=== PATIENT | female | born 1955 | race Caucasian/White ===

== ENCOUNTER → 2016-10-21 | Outpatient (CLI) | payer OTHER | LOC: FIMAGING 12:44 | DX: Z12.31 Encounter for screening mammogram for malignant neoplasm of breast (principal) | CPT/HCPCS: G0202 ==

== ENCOUNTER 2017-11-06 15:13 | Emergency (ER) | payer OTHER ==
--- NOTE | 2017-11-06 15:52 | CPEKG ---
Heart Rate: 82 RR Interval: 732 P-R Interval: 156 QRSD Interval: 88 QT Interval: 392 QTC Interval: 458 P [place]: 62 QRS [place]: -35 T Wave [place]: 51 EKG Severity - OTHERWISE NORMAL ECG - EKG Impression: SINUS RHYTHM EKG Impression: LEFT AXIS DEVIATION Electronically Signed By: Maria Isabel Saldivar 06-Nov-2017 22:36:04
[2017-11-06] MEDS ORDERED: NS 500 ML IV ONE (16:10)
--- NOTE | 2017-11-06 16:13 | EDPHY ---
H & P Time Seen by Provider: 11/06/17 15:27 HPI/ROS: CHIEF COMPLAINT: "Abdominal tightness" HISTORY OF PRESENT ILLNESS: Patient is a 62-year-old female who presents emergency department with anterior abdominal tightness. Patient states she was working outside earlier today. She subsequently became hot so she came inside. At 3:00 p.m. she developed a tightness across her upper abdomen. This did not radiate to her chest, arm or jaw. She had mild shortness of breath associated with this symptom. No cough. No nausea, vomiting or diaphoresis. No leg pain or swelling. No recent travel. Her pain has resolved. She feels back to normal. The patient took a full-strength aspirin at the onset of her symptoms. REVIEW OF SYSTEMS: My complete review of systems is negative except as mentioned in the HPI. Past Medical/Surgical History: Includes hypertension, anemia Past surgical history: Noncontributory Social history: Patient denies smoking Smoking Status: Never smoked Physical Exam: Vitals noted GENERAL: Well-appearing, in no acute distress, alert. HEENT: Eyes normal to inspection, normal pharynx, no signs of dehydration. NECK: No thyromegaly, no lymphadenopathy, supple. RESPIRATORY: Clear to auscultation bilaterally, no rales, rhonchi or wheezing. CVS: Regular rate and rhythm, no rubs, murmurs, or gallops. ABDOMEN: Soft, nontender, nondistended, no organomegaly. BACK: Normal to inspection, no CVA tenderness. SKIN: Normal color, no rash, warm, dry. No pallor. EXTREMITIES: No pedal edema, no calf tenderness, no Homans sign or cords, no joint swelling. NEURO/PSYCH: Alert and oriented x3, normal mood and affect, normal motor sensory exam. No obvious cranial nerve deficit. Constitutional: Initial Vital Signs Temperature (C) 37 C 11/06/17 15:17 Heart Rate 90 11/06/17 15:17 Respiratory Rate 16 11/06/17 15:17 Blood Pressure 144/81 H 11/06/17 15:17 O2 Sat (%) 97 11/06/17 15:17 O2 Delivery Mode Room Air Allergies/Adverse Reactions: No Known Allergies Allergy (Unverified 11/06/17 15:17) Home Medications: Medication Instructions Recorded Lisinopril 05/05/18 Omeprazole 11/06/17 Medical Decision Making - Diagnostics Imaging Results: Imaging Impressions Chest X-Ray 11/06/17 16:07 Impression: 1. Clear lungs. No pneumonia or effusion. 2. Large hiatal hernia. ED Course/Re-evaluation: In the emergency department patient appears well. I discussed the plan with the patient and answered all her questions. IV was placed. Laboratory studies , EKG and chest x-ray were obtained. Patient was not given aspirin because she took 1 prior to arrival. EKG shows normal sinus rhythm, normal rate, left axis, normal intervals. There are no ST or T-wave abnormalities. Patient's CBC and chemistry unremarkable. Troponin was negative. Repeat EKG 18 13: EKG shows normal sinus rhythm, normal rate, left axis deviation, normal intervals. There are no ST or T-wave abnormalities. Her repeat troponin was negative. 1755: I rechecked the patient and she felt well. She had no complaints. No chest pain or shortness of breath. She will follow up with primary care physician on Wednesday. She was given warnings prior to leaving. She will return with worsening symptoms. Differential Diagnosis: My differential includes but is not limited to ACS, acute NH, dissection, aneurysm, electrolyte abnormality, sugar abnormality, dehydration, pulmonary embolus, pericarditis, pancreatitis, cholecystitis, hiatal hernia - Data Points Laboratory Results: Laboratory Results 11/06/17 15:35 11/06/17 15:35 11/06/17 11/06/17 11/06/17 18:10 15:35 15:35 WBC 7.52 10^3/uL 10^3/uL (3.80-9.50) RBC 4.48 10^6/uL 10^6/uL (4.18-5.33) Hgb 9.1 g/dL L g/dL (12.6-16.3) Hct 30.1 % L % (38.0-47.0) MCV 67.2 fL L fL (81.5-99.8) MCH 20.3 pg L pg (27.9-34.1) MCHC 30.2 g/dL L g/dL (32.4-36.7) RDW 18.2 % H % (11.5-15.2) Plt Count 377 10^3/uL 10^3/uL (150-400) MPV 10.5 fL fL (8.7-11.7) Neut % (Auto) 67.4 % % (39.3-74.2) Lymph % (Auto) 24.9 % % (15.0-45.0) [place] % (Auto) 4.7 % % (4.5-13.0) Eos % (Auto) 2.0 % % (0.6-7.6) Baso % (Auto) 0.7 % % (0.3-1.7) Nucleat RBC Rel Count 0.0 % % (0.0-0.2) Absolute Neuts (auto) 5.08 10^3/uL 10^3/uL (1.70-6.50) Absolute Lymphs (auto) 1.87 10^3/uL 10^3/uL (1.00-3.00) Absolute Monos (auto) 0.35 10^3/uL 10^3/uL (0.30-0.80) Absolute Eos (auto) 0.15 10^3/uL 10^3/uL (0.03-0.40) Absolute Basos (auto) 0.05 10^3/uL 10^3/uL (0.02-0.10) Absolute Nucleated RBC 0.00 10^3/uL 10^3/uL (0-0.01) Immature Gran % 0.3 % % (0.0-1.1) Immature Gran # 0.02 10^3/uL 10^3/uL (0.00-0.10) Platelet Estimate ADEQUATE (ADEQ) Polychromasia 1+ H Hypochromasia 1+ H Microcytic Cells 2+ H Elliptocytes 1+ H Smear Review By Pending Sodium 140 mEq/L mEq/L (135-145) Potassium 4.0 mEq/L mEq/L (3.5-5.2) Chloride 107 mEq/L mEq/L (97-110) Carbon Dioxide 20 mEq/l L mEq/l (22-31) Anion Gap 13 mEq/L mEq/L (8-16) BUN 16 mg/dL mg/dL (7-23) Creatinine 1.1 mg/dL H mg/dL (0.6-1.0) Estimated GFR 51 Glucose 116 mg/dL H mg/dL (70-100) Calcium 8.8 mg/dL mg/dL (8.5-10.4) Total Bilirubin 0.7 mg/dL mg/dL (0.1-1.4) Conjugated Bilirubin 0.5 mg/dL mg/dL (0.0-0.5) Unconjugated Bilirubin 0.2 mg/dL mg/dL (0.0-1.1) AST 24 IU/L IU/L (14-46) ALT 33 IU/L IU/L (9-52) Alkaline Phosphatase 86 IU/L IU/L (38-126) Troponin I < 0.012 ng/mL ng/mL < 0.012 ng/mL ng/mL (0.000-0.034) (0.000-0.034) Total Protein 6.6 g/dL g/dL (6.3-8.2) Albumin 3.9 g/dL g/dL (3.5-5.0) Lipase 115 IU/L IU/L (23-300) Medications Given: Discontinued Medications Sodium Chloride (Ns) 500 mls @ 1,000 mls/hr IV EDNOW ONE PRN Reason: Protocol Stop: 11/06/17 16:39 Last Admin: 11/06/17 18:59 Dose: 500 mls Departure - Departure Disposition: Home, Routine, Self-Care Clinical Impression: Chest pain Qualifiers: Chest pain type: other chest pain Qualified Code(s): R07.89 - Other chest pain Condition: Good Instructions: Chest Pain (ED), Acute Abdominal Pain (ED) Additional Instructions: Return with increasing pain, weakness, shortness of breath, fever or any other concerns. Referrals: Rosa Elena Eubanks [Primary Care Provider] - 1-2 days without fail
[2017-11-06 16:30] LABS: PLATELET COUNT 377 10^3/uL (150-400)
--- NOTE | 2017-11-06 18:16 | CPEKG ---
Heart Rate: 73 RR Interval: 822 P-R Interval: 152 QRSD Interval: 86 QT Interval: 416 QTC Interval: 459 P [place]: 145 QRS [place]: -28 T Wave [place]: 1 EKG Severity - BORDERLINE ECG - EKG Impression: SINUS OR ECTOPIC ATRIAL RHYTHM EKG Impression: BORDERLINE LEFT AXIS DEVIATION EKG Impression: BORDERLINE T WAVE ABNORMALITIES Electronically Signed By: Maria Isabel Saldivra 06-Nov-2017 22:36:04
[2017-11-06 20:09] VITALS: BP 133/86
== END 2017-11-06 20:09 | disposition home or self-care (01) ==
DX: R07.89 Other chest pain (principal); E86.9 Volume depletion, unspecified; I10 Essential (primary) hypertension

== ENCOUNTER → 2017-11-10 | Outpatient (CLI) | payer OTHER | LOC: FIMAGING 13:27 | PROVIDERS: ATTEND Obstetrics & Gynecology Gynecology | DX: Z12.31 Encounter for screening mammogram for malignant neoplasm of breast (principal) ==

== ENCOUNTER → 2017-12-07 | Outpatient (CLI) | payer OTHER | LOC: BMCIMAGING 13:58 | PROVIDERS: ATTEND Obstetrics & Gynecology Gynecology | DX: Z13.820 Encounter for screening for osteoporosis (principal); M85.89 Other specified disorders of bone density and structure, multiple sites; Z78.0 Asymptomatic menopausal state ==